=== PATIENT | female | born 1995 | race Caucasian/White ===

== ENCOUNTER 2022-10-04 17:35 | Day surgery (SDC) | payer OTHER ==
[2022-10-04 18:17] VITALS: BMI 24.7
[2022-10-04] MEDS ORDERED: hydrALAZINE 20 MG/ML VIAL SLOW IVP PRN (18:36)
[2022-10-04] MEDS ORDERED: Morphine 4 MG/ML VIAL IM SCH (21:00)
[2022-10-04] MEDS ORDERED: Promethazine HCl 25 MG/ML VIAL IM SCH (21:00)
[2022-10-04] MEDS ORDERED: Morphine 4 MG/ML VIAL ONE (21:15)
[2022-10-04] MEDS ORDERED: Promethazine HCl 25 MG/ML VIAL ONE (21:16)
== END 2022-10-04 21:45 | disposition home or self-care (01) ==
LOC: CSHLD/OP 17:35
PROVIDERS: ATTEND Student in an Organized Health Care Education/Training Program
DX: O47.03 False labor before 37 completed weeks of gestation, third trimester (principal); O99.343 Other mental disorders complicating pregnancy, third trimester; F32.A Depression, unspecified; O99.613 Diseases of the digestive system complicating pregnancy, third trimester; K82.9 Disease of gallbladder, unspecified; O98.513 Other viral diseases complicating pregnancy, third trimester; B06.9 Rubella without complication; Z67.91 Unspecified blood type, Rh negative; Z90.49 Acquired absence of other specified parts of digestive tract; Z3A.36 36 weeks gestation of pregnancy
CPT/HCPCS: 96372; 99282; J2270; J2550

== ENCOUNTER 2022-10-09 11:47 | Inpatient (IN) | payer OTHER ==
[2022-10-09] MEDS ORDERED: Diphenoxylate HCl/Atropine Tablet PO PRN (12:11)
[2022-10-09] MEDS ORDERED: Lidocaine 1% (PF) 30 ML VIAL SC PRN (12:11)
[2022-10-09] MEDS ORDERED: Carboprost 250 MCG/ML AMP IM PRN (12:11)
[2022-10-09] MEDS ORDERED: HYDROcodone/Acetaminophen 5/325 mg Tablet PO PRN (12:11)
[2022-10-09] MEDS ORDERED: Ibuprofen 800 MG TAB PO PRN (12:11)
[2022-10-09] MEDS ORDERED: Acetaminophen 500 MG TAB PO PRN (12:11)
[2022-10-09] MEDS ORDERED: Promethazine HCl 25 MG/ML VIAL IM PRN (12:11)
[2022-10-09] MEDS ORDERED: Methylergonovine 0.2 MG/ML VIAL IM PRN (12:11)
[2022-10-09] MEDS ORDERED: fentaNYL 50 mcg/mL 1 mL Vial SLOW IVP PRN (12:11)
[2022-10-09] MEDS ORDERED: Tranexamic Acid 1,000 MG/10 ML VIAL IVP PRN (12:11)
[2022-10-09] MEDS ORDERED: hydrALAZINE 20 MG/ML VIAL SLOW IVP PRN (12:11)
[2022-10-09] MEDS ORDERED: Misoprostol 200 MCG TAB PR PRN (12:11)
[2022-10-09] MEDS ORDERED: Ondansetron PF 4 MG/2 ML Vial IVP PRN (12:11)
[2022-10-09] MEDS ORDERED: NS w/ Oxytocin 30 units 500 ML IV SCH ×2 (12:15)
[2022-10-09 13:32] LABS: Hematocrit 36.4 % (34.9-44.5); Hemoglobin 12.1 g/dL (12.0-15.5); Mean Corpuscular HGB CONC 33.2 g/dL (32.0-36.0); Mean Corpuscular Hemoglobin 26.4 pg (27.0-33.0); Mean Corpuscular Volume 79.5 fl (81.6-98.3); Mean Platelet Volume 11.5 fl (7.4-10.4); Platelet Count 242 10x3/uL (150-450); RBC Distribution Width 13.3 % (11.5-14.5); Red Blood Cell (RBC) Count 4.58 10x6/uL (3.90-5.03)
[2022-10-09 13:45] LABS: ALT (SGPT) 83 U/L (8-55); AST (SGOT) 41 U/L (5-34); Albumin 3.4 g/dL (3.5-5.0); Alkaline Phosphatase 242 U/L (40-110); Anion Gap 15 mmol/L (10-20); BUN (Urea Nitrogen) 6 mg/dL (7.0-18.7); Bilirubin, Total 0.9 mg/dL (0.2-1.2); Calc. Creatinine Clearance 0 mL/min (70-130); Calcium 8.6 mg/dL (7.8-10.44); Carbon Dioxide 21 mmol/L (22-29); Chloride 104 mmol/L (98-107); Estimated GFR 124; Globulin 2.9 g/dL (2.4-3.5); Glucose 91 mg/dL (70-105); Potassium 3.6 mmol/L (3.5-5.1); Protein, Total 6.3 g/dL (6.0-8.3); Sodium 136 mmol/L (136-145)
[2022-10-09 14:05] LABS: Syphilis Antibody Nonreactive (Nonreactive); Syphilis Antibody Index 0.05 S/CO (<1.00 Non-Reactive)
[2022-10-09 14:07] LABS: HBSAg Index 0.17 S/CO (0-0.99); Hep B Surf Ag - L&D Non-Reactive S/CO (NonReactive)
[2022-10-09 21:40] VITALS: BMI 24.7
[2022-10-10] MEDS ORDERED: Benzocaine-Menthol 82.5 ML CAN TOP PRN ×2 (01:13→02:31)
[2022-10-10] MEDS ORDERED: Witch Hazel-Glycerin 1 EACH JAR TOP PRN (01:14)
[2022-10-10] MEDS ORDERED: Misoprostol 200 MCG TAB VAG PRN (02:31)
[2022-10-10] MEDS ORDERED: Bisacodyl 10 MG SUPP PR PRN (02:31)
[2022-10-10] MEDS ORDERED: Ondansetron PF 4 MG/2 ML Vial IVP PRN (02:31)
[2022-10-10] MEDS ORDERED: Methylergonovine 0.2 MG/ML VIAL IM PRN (02:31)
[2022-10-10] MEDS ORDERED: hydrALAZINE 20 MG/ML VIAL SLOW IVP PRN (02:31)
[2022-10-10] MEDS ORDERED: Boostrix 0.5 ML (Tdap) VIAL (>/=7 yrs of age) IM ONE (02:31)
[2022-10-10] MEDS ORDERED: Milk Of Magnesia 30 ML UDCUP PO PRN (02:31)
[2022-10-10] MEDS ORDERED: NS w/ Oxytocin 30 units 500 ML IV SCH (02:45)
[2022-10-10] MEDS: Lactated Ringer's 1,000 ML IV SCH ×2 (05:10→17:09)
[2022-10-10] MEDS: Ibuprofen 800 MG TAB PO SCH ×3 (05:35→21:12)
[2022-10-10] MEDS: Docusate 100 MG CAP PO SCH ×2 (09:37→21:12)
[2022-10-10] MEDS: Ferrous Sulfate 325 MG TAB PO SCH (17:09)
[2022-10-10 22:20] VITALS: TEMP 97.8
[2022-10-11] MEDS: Ibuprofen 800 MG TAB PO SCH (06:38)
[2022-10-11 07:45] VITALS: BP 113/71
[2022-10-11] MEDS: Docusate 100 MG CAP PO SCH (08:47)
[2022-10-11] MEDS ORDERED: Measles/Mumps/Rubella 10 MCG/0.5 ML VIAL SC ONE (09:35)
[2022-10-11] MEDS: Lactated Ringer's 1,000 ML IV SCH (09:43)
[2022-10-11] MEDS: Ferrous Sulfate 325 MG TAB PO SCH (09:45)
== END 2022-10-11 11:45 | disposition home or self-care (01) | DRG 807 ==
LOC: CSHLD 11:47 → CSHPP 10-10 00:04
PROVIDERS: ADMIT Student in an Organized Health Care Education/Training Program; ATTEND Student in an Organized Health Care Education/Training Program
PROC: 10E0XZZ Delivery of Products of Conception, External Approach (ICD-10-PCS; principal; 2022-10-09)
PROC: 0HQ9XZZ Repair Perineum Skin, External Approach (ICD-10-PCS; 2022-10-09)
PROC: 3E0P7VZ Introduction of Hormone into Female Reproductive, Via Natural or Artificial Opening (ICD-10-PCS; 2022-10-09)
PROC: 3E0334Z Introduction of Serum, Toxoid and Vaccine into Peripheral Vein, Percutaneous Approach (ICD-10-PCS; 2022-10-09)
PROC: 3E033VJ Introduction of Other Hormone into Peripheral Vein, Percutaneous Approach (ICD-10-PCS; 2022-10-09)
DX: O26.62 Liver and biliary tract disorders in childbirth (principal); Z37.0 Single live birth; O70.0 First degree perineal laceration during delivery; Z3A.37 37 weeks gestation of pregnancy; O26.893 Other specified pregnancy related conditions, third trimester; Z67.11 Type A blood, Rh negative
CPT/HCPCS: 36415; 80053; 85027; 86780; 86850; 86870; 86900; 86901; 87340; J3010